=== PATIENT | female | born 1965 | race Asian ===

== ENCOUNTER 2018-04-13 17:04 | Inpatient (IN) | payer OTHER ==
[2018-04-13 19:36] VITALS: BMI 28.1
--- NOTE | 2018-04-13 21:29 | HP ---
CIWA Score - CIWA Score Nausea/Vomitin-Mild Nausea/No Vomiting Muscle Tremors: 4-Moderate,w/Arms Extend Anxiety: 4-Mod. Anxious/Guarded Agitation: 4-Moderately Restless Paroxysmal Sweats: 3 Orientation: 1-Uncertain about Date Tacttile Disturbances: 0-None Auditory Disturbances: 2-Mild Harshness/Frighten Visual Disturbances: 1-Very Mild Sensitivity Headache: 2-Mild CIWA-Ar Total Score: 22 Admission ROS S - HPI Chief Complaint: `C/O WITHDRAWAL SX'S FROM LACK OF ALCOHOL Allergies/Adverse Reactions: Allergies Allergy/AdvReac Type Severity Reaction Status Date / Time Penicillins Allergy Mild Nausea Verified 04/13/18 18:48 History of Present Illness: 53 Y.O FEMALE WITH ALCOHOL DEPENDENCE HERE FOR DETOX. THIS IS CLIENT FIRST INPATIENT TXMENT. SHE WAS REFERRED BY [facility] DUE TO A DWI.SHE IS KNOWN TO OTHER OUTPATIENT DETOX TXMNET. SHE CURRENTLY ATTENDS [facility]. C/O WITHDRAWAL SX'S, CIWA 22. REPORTS LONGEST CLEAN TIME 1 YEAR. SHE REPORTS A HX/O ALCOHOL WITHDRAWAL SEIZURE. LAST EPISODE 2 WEEK AGO. SHE REPORTS BEING HOSPITALIZED X 2 DAYS AT [facility]. SHE ALSO HAS HX/O BLACK OUT, DT'S AND AVH WHEN WITHDRAWAING "COLD TURKEY". PMHX- LYMPH EDEMA, ECZEMA, SICKLE, CELL ANEMIA TRAIT PSYCH- DEPRESSION, ANXIETY Exam Limitations: No Limitations - Ebola screening Have you traveled outside of the country in the last 21 days: No Have you had contact with anyone from an Ebola affected area: No Have you been sick,other than usual withdrawal symptoms: No Do you have a fever: No - Review of Systems Constitutional: Chills, Loss of Appetite, Night Sweats, Changes in sleep EENT: reports: No Symptoms Reported Respiratory: reports: No Symptoms reported Cardiac: reports: No Symptoms Reported GI: reports: Nausea, Poor Appetite : reports: No Symptoms Reported Musculoskeletal: reports: Back Pain (CHRONIC R/T OA) Integumentary: reports: No Symptoms Reported, Dryness (REPROTED ECZEMA) Neuro: reports: Seizure, Tremors (R/T WITHDRAWAL) Endocrine: reports: No Symptoms Reported Hematology: reports: No Symptoms Reported Psychiatric: reports: Anxious, Depressed Other Systems: Reviewed and Negative Patient History - Patient Medical History Hx Anemia: Yes Hx Asthma: No Hx Chronic Obstructive Pulmonary Disease (COPD): No Hx Cancer: No Hx Cardiac Disorders: No Hx Congestive Heart Failure: No Hx Hypertension: No Hx Hypercholesterolemia: No Hx Pacemaker: No HX Cerebrovascular Accident: No Hx Seizures: Yes (alcohol related seizure 04/04/18) Hx Dementia: No Hx Diabetes: No Hx Gastrointestinal Disorders: Yes (obesity 2007 bypass surgery for) Hx Liver Disease: Yes (ELEVATED LFT'S) Hx Genitourinary Disorders: No Hx Sexually Transmitted Disorders: No Hx Renal Disease (ESRD): No Hx Thyroid Disease: No Hx Human Immunodeficiency Virus (HIV): No Hx Hepatitis C: No Hx Depression: Yes (2007) Hx Suicide Attempt: No Hx Bipolar Disorder: No Hx Schizophrenia: No Other Medical History: OSTEOARTHRITIS, ANXIETY, LYMPH EDMEA, - Patient Surgical History Past Surgical History: Yes Hx Abdominal Surgery: Yes (gastric bypass 2007) Other Surgical History: correction for Lymphedema on legs Lymph nodes removed 21 yrs/old 1985 Anesthesia Reaction: No - PPD History Previous Implant?: Yes Documented Results: Negative w/o proof Implanted On Prior R Admission?: No PPD to be Administered?: Yes - Reproductive History Patient is a Female of Child Bearing Age (11 -55 yrs old): Yes Last Menstrual Period: 02/10/18 LMP comment: SPOTTING HAS NOT HAD A PERIOD OVER A YEAR PRIOR TO SPOTTING [place] [facility] [place] - Smoking Cessation Smoking history: Never smoked Have you smoked in the past 12 months: No Cigars Per Day: 0 Hx Chewing Tobacco Use: No Initiated information on smoking cessation: No - Substance & Tx. History Hx Alcohol Use: Yes Hx Substance Use: Yes Substance Use Type: Alcohol Hx Substance Use Treatment: No - Substances Abused Alcohol Route: Oral Frequency: 3-6 times per week Amount used: 1 LITER Age of first use: 14 Date of Last Use: 04/10/18 Family Disease History - Family Disease History Family Disease History: Other: Grandparent (MATERNAL-ALCOHOLIC), Father ( ALCOHOLIC AND DRUG ADDICTION), Mother (DEPRESSION/ SUICIDAL), Son (DEPRESSION) Admission Physical Exam BHS - Vital Signs Vital Signs: Vital Signs - 24 hr 04/13/18 18:41 Temperature 98.9 F Pulse Rate 72 Respiratory 18 Rate Blood Pressure 104/65 - Physical General Appearance: Yes: Appropriately Dressed, Mild Distress, Tremorous, Anxious HEENTM: Yes: EOMI, Normocephalic, Normal Voice, LOU[place], Pharynx Normal Respiratory: Yes: Chest Non-Tender, Lungs Clear, Normal Breath Sounds, No Respiratory Distress, No Accessory Muscle Use Neck: Yes: No masses,lesions,Nodules, Supple, Trachea in good position Breast: Yes: Breast Exam Deferred Cardiology: Yes: Regular Rhythm, Regular Rate, S1, S2 Abdominal: Yes: Normal Bowel Sounds, Non Tender, Soft, Surgical Scar Genitourinary: Yes: Other (NO C/O) Back: Yes: Normal Inspection Musculoskeletal: Yes: full range of Motion, Gait Steady Extremities: Yes: Normal Capillary Refill, Normal Range of Motion, Non-Tender, Tremors, Other (BLE NON PITTING EDEMA. COMPRESSION STOCKINGS NOTED) Neurological: Yes: Fully Oriented, Alert, Motor Strength 5/5, Depressed Affect Integumentary: Yes: Dry, Warm Lymphatic: Yes: Within Normal Limits - Diagnostic (1) Alcohol dependence with uncomplicated withdrawal Current Visit: Yes Status: Acute (2) Lymph edema Current Visit: Yes Status: Acute (3) History of anemia Current Visit: Yes Status: Chronic (4) Sickle-cell trait Current Visit: Yes Status: Chronic (5) Eczema Current Visit: Yes Status: Chronic Qualifiers: Eczema type: unspecified Qualified Code(s): L30.9 - Dermatitis, unspecified (6) Alcohol withdrawal seizure Current Visit: Yes Status: Resolved Qualifiers: Complication of substance-induced condition: uncomplicated Qualified Code(s ): F10.230 - Alcohol dependence with withdrawal, uncomplicated Cleared for Admission [facility] - Detox or Rehab [facility] Level of Care: Medically Managed Detox Regimen/Protocol: Librium Claeared for Rehab Admission: No [facility] Breath Alcohol Content Breath Alcohol Content: 0 Urine Pregancy Test - Result Urine Test Results: Negative- NO Line Present Urine Drug Screen - Results Drug Screen Negative: Yes
[2018-04-13] MEDS ORDERED: MAGNESIUM HYDROX 2400MG/30ML ORAL SUSPENSION 30 ML CUP PO PRN (21:41)
[2018-04-13] MEDS ORDERED: guaiFENesin/D-METHORPHAN HB 10 ML UNIT-DOSE CUPS PO PRN (21:41)
[2018-04-13] MEDS ORDERED: MAG HYDROX/AL HYDROX/SIMETH 30 ML UNIT-DOSE CUP PO PRN (21:41)
[2018-04-13] MEDS ORDERED: chlordiazePOXIDE HCL 25 MG CAPSULE PO PRN (21:41)
[2018-04-13] MEDS ORDERED: MAGNESIUM CITRATE 300 ML BOTTLE PO PRN (21:41)
[2018-04-13] MEDS ORDERED: P-EPHED 60MG/TRIPROLIDI 2.5MG TABLET PO PRN (21:41)
[2018-04-13] MEDS ORDERED: ACETAMINOPHEN 325 MG TABLET (FP) PO PRN (21:41)
[2018-04-13] MEDS ORDERED: NICOTINE POLACRILEX 2 MG GUM BC PRN (21:41)
[2018-04-13] MEDS ORDERED: IBUPROFEN 400 MG TABLET (FP) PO PRN (21:41)
[2018-04-13] MEDS ORDERED: LOPERAMIDE HCL 2 MG CAPSULE PO PRN (21:41)
[2018-04-13] MEDS ORDERED: hydrOXYzine PAMOATE 50 MG CAPSULE (FP) PO PRN (21:41)
[2018-04-13] MEDS ORDERED: MENTHOL/PHENOL 1 EACH UD MM PRN (21:41)
[2018-04-13] MEDS ORDERED: MELATONIN 5 MG TABLETS PO PRN (22:00)
[2018-04-13] MEDS: THIAMINE HCL 100 MG TABLET (FP) PO SCH (22:44)
[2018-04-13] MEDS: chlordiazePOXIDE HCL 25 MG CAPSULE PO SCH (22:44)
[2018-04-14] MEDS: chlordiazePOXIDE HCL 25 MG CAPSULE PO SCH ×4 (05:23→22:16)
[2018-04-14] MEDS: PRENATAL VITAMINS W/ FOLIC ACID TABLET (FP) PO SCH (10:19)
[2018-04-14] MEDS: TRIAMCINOLONE ACET 0.025% CREAM 15 GM TUBE TP SCH (10:22)
[2018-04-14 10:24] LABS: HEMATOCRIT 28.1 % (32.4-45.2); HEMOGLOBIN 9.7 GM/dL (10.7-15.3); MCH 34.4 pg (25.7-33.7); MCHC 34.7 g/dl (32.0-36.0); MEAN CELL VOLUME 99.3 fl (80-96); MEAN PLT VOLUME 8.3 fl (7.5-11.1); PLATELET COUNT 332 K/MM3 (134-434); RBC 2.83 M/mm3 (3.60-5.2); RDW 16.3 % (11.6-15.6); WHITE BLOOD COUNT 3.9 K/mm3 (4.0-10.0)
[2018-04-14 10:44] LABS: ALBUMIN 2.4 g/dl (3.4-5.0); ALK PHOS 90 U/L (45-117); ANION GAP 8 MMOL/L (8-16); BILIRUBIN,TOTAL 0.3 mg/dL (0.2-1); BLOOD UREA NITROGEN 9 mg/dL (7-18); CALCIUM 8.2 mg/dL (8.5-10.1); CHLORIDE 110 mmol/L (98-107); CO2 27 mmol/L (21-32); CREATININE 0.3 mg/dL (0.55-1.3); GLUCOSE,RANDOM 55 mg/dL (74-106); POTASSIUM 3.8 mmol/L (3.5-5.1); SGOT/AST 18 U/L (15-37); SGPT/ALT 24 U/L (13-61); SODIUM 144 mmol/L (136-145); TOT PROT 5.1 g/dl (6.4-8.2)
[2018-04-14] MEDS ORDERED: PNEUMOC 13-VAL CONJ-DIP CRM/PF 0.5 ML DISP.SYRIN IM ONE (12:00)
[2018-04-14] MEDS ORDERED: FLU VACCINE QUAD 60 MCG/0.5 ML (MDV 18-19) IM ONE (12:00)
--- NOTE | 2018-04-14 12:24 | EKG ---
Test Reason : Blood Pressure : / mmHG Vent. Rate : 060 BPM Atrial Rate : 060 BPM P-R Int : 128 ms QRS Dur : 084 ms QT Int : 406 ms P-R-T Axes : 031 052 039 degrees QTc Int : 406 ms NORMAL SINUS RHYTHM NO PREVIOUS ECGS AVAILABLE Confirmed by DARLENE OKEEFE MD ([id number]) on 04/14/2018 12:24:16 PM Referred By: Confirmed By:DARLENE OKEEFE MD
[2018-04-14] MEDS ORDERED: PNEUMOCOCCAL 23 VACCINE 0.5 ML VIAL IM ONE (12:30)
[2018-04-14 12:35] LABS: SICKLE CELL SCREEN POSITIVE (NEGATIVE)
--- NOTE | 2018-04-14 12:39 | PN ---
S CIWA - CIWA Score Nausea/Vomitin-No Nausea/No Vomiting Muscle Tremors: 2 Anxiety: 3 Agitation: 3 Paroxysmal Sweats: 2 Orientation: 0-Oriented Tacttile Disturbances: 0-None Auditory Disturbances: 0-None Visual Disturbances: 0-None Headache: 0-None Present CIWA-Ar Total Score: 10 BHS Progress Note (SOAP) Subjective: PATIENT C/O ANXIETY, RESTLESSNESS, TREMORS AND SWEATING. Objective: 04/14/18 12:34 Vital Signs Temperature 97.8 F 04/14/18 09:43 Pulse Rate 111 H 04/14/18 09:43 Respiratory Rate 18 04/14/18 09:43 Blood Pressure 119/66 04/14/18 09:43 O2 Sat by Pulse Oximetry (%) Laboratory Tests 04/14/18 04/14/18 08:00 08:00 WBC 3.9 L RBC 2.83 L Hgb 9.7 L Hct 28.1 L MCV 99.3 H MCH 34.4 H MCHC 34.7 RDW 16.3 H Plt Count 332 MPV 8.3 Sodium 144 Potassium 3.8 Chloride 110 H Carbon Dioxide 27 Anion Gap 8 BUN 9 Creatinine 0.3 L Creat Clearance w eGFR > 60 Random Glucose 55 L Calcium 8.2 L Total Bilirubin 0.3 AST 18 ALT 24 Alkaline Phosphatase 90 Total Protein 5.1 L Albumin 2.4 L PE: SKIN WARM AND MOIST ALERT AND ORIENTED X 3 AMB AD LÁZARO EXT FULL ROM, + INTERMITTENT TREMORS Assessment: 04/14/18 12:39 WITHDRAWAL SYNDROME Plan: CONTINUE DETOX REGIMEN ENCOURAGE ORAL FLUIDS CONTINUE TO MONITOR CLINICALLY
--- NOTE | 2018-04-14 18:32 | CONSULT ---
[facility] Psychiatric Consult - Data Date of interview: 04/14/18 Admission source: [facility] Identifying data: First admission to [facility] for this 53 y/o AA female seeking detoxification treatment on for alcohol dependence. Patient is , a mother of one, domiciled and currently employed on a part-time schedule. Substance Abuse History: Confirmed by the patient in this session. Details in current [facility] report : Smoking history: Never smoked. Have you smoked in the past 12 months: No. Cigars Per Day: 0. Hx Chewing Tobacco Use: No. Initiated information on smoking cessation: No. - Substance & Tx. History. Hx Alcohol Use: Yes. Hx Substance Use: Yes. Substance Use Type: Alcohol. Hx Substance Use Treatment: No. - Substances Abused. Alcohol. Route: Oral. Frequency: 3-6 times per week. Amount used: 1 LITER. Age of first use: 14. Date of Last Use: 04/10/18 Medical History: History of withdrawal-related withdrawal, eczema, sickle cell trait, lymphedema, antecedent of gastric bypass and osteoarthritis. Psychiatric History: No reported history of psychiatric hospitalizations. Patient is under the care of a private psychiatrist, Dr Bledsoe, for medication management (lexapro 10 mg/day). Diagnosed with MDD. Ms Espinosa denies history of suicide attempts. Physical/Sexual Abuse/Trauma History: Patient denies. Additional Comment: Drug Screen is negative. Mental Status Exam - Mental Status Exam Alert and Oriented to: Time, Place, Person Cognitive Function: Good Patient Appearance: Well Groomed (short stature, overweight) Mood: Apprehensive, Hopeful Affect: Appropriate, Mood Congruent, Normal Range Patient Behavior: Appropriate, Cooperative Speech Pattern: Clear, Appropriate Voice Loudness: Normal Thought Process: Intact, Goal Oriented Thought Disorder: Not Present Hallucinations: Denies Suicidal Ideation: Denies Homicidal Ideation: Denies Insight/Judgement: Fair Sleep: Well Appetite: Good Muscle strength/Tone: Normal Gait/Station: Normal Psychiatric Findings - Problem List ([place] 1, 2,3) (1) Alcohol dependence with uncomplicated withdrawal Current Visit: Yes Status: Acute (2) 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 - Initial Treatment Plan Initial Treatment Plan: Psychoeducation. Sleep hygiene. AA meetings. Psychotherapy (individual, supportive, group). Patient is made aware of the FDA- approved MAT formulations for alcohol relapse prevention. Ms Espinosa indicates her intention to revisit issue of naltrexone or acamprosate with her psychiatrist after discharge from [facility]. Lexapro 10 mg po daily. Ordered. Side effects/benefits discussed with the patient. Consent (verbal) given. Observation.
[2018-04-14 19:39] LABS: URINE APPEARANCE SLCLOUDY; URINE BILIRUBIN NEGATIVE (<2.0 mg/dL); URINE COLOR LTYELLOW; URINE GLUCOSE (UA) NEGATIVE (NEGATIVE); URINE KETONE NEGATIVE (NEGATIVE); URINE LEUK ESTERASE NEGATIVE (NEGATIVE); URINE NITRITE NEGATIVE (NEGATIVE); URINE PROTEIN NEGATIVE (NEGATIVE); URINE UROBILINOGEN NEGATIVE mg/dL (0.2-1.0)
[2018-04-14] MEDS: THIAMINE HCL 100 MG TABLET (FP) PO SCH (22:16)
[2018-04-15] MEDS: chlordiazePOXIDE HCL 25 MG CAPSULE PO SCH ×3 (05:40→18:23)
[2018-04-15] MEDS: ESCITALOPRAM OXALATE 10 MG TABLET (FP) PO SCH (10:24)
[2018-04-15] MEDS: TRIAMCINOLONE ACET 0.025% CREAM 15 GM TUBE TP SCH (10:24)
[2018-04-15] MEDS: PRENATAL VITAMINS W/ FOLIC ACID TABLET (FP) PO SCH (10:25)
--- NOTE | 2018-04-15 11:56 | PN ---
S CIWA - CIWA Score Nausea/Vomitin-No Nausea/No Vomiting Muscle Tremors: 3 Anxiety: 3 Agitation: 2 Paroxysmal Sweats: 1-Minimal Palms Moist Orientation: 0-Oriented Tacttile Disturbances: 0-None Auditory Disturbances: 0-None Visual Disturbances: 0-None Headache: 0-None Present CIWA-Ar Total Score: 9 BHS Progress Note (SOAP) Subjective: seen by psychiatrist on lexapro worry about hair loss x 5 years report had seizure "not long ago" treated at [facility] no discharge treatment not on siezure medication feeling better todayb less sweat no gi idstress Objective: 04/15/18 12:00 Vital Signs Temperature 97.9 F 04/15/18 09:35 Pulse Rate 88 04/15/18 09:35 Respiratory Rate 18 04/15/18 09:35 Blood Pressure 120/65 04/15/18 09:35 O2 Sat by Pulse Oximetry (%) Laboratory Last Values WBC 3.9 K/mm3 (4.0-10.0) L 04/14/18 08:00 RBC 2.83 M/mm3 (3.60-5.2) L 04/14/18 08:00 Hgb 9.7 GM/dL (10.7-15.3) L 04/14/18 08:00 Hct 28.1 % (32.4-45.2) L 04/14/18 08:00 MCV 99.3 fl (80-96) H 04/14/18 08:00 MCH 34.4 pg (25.7-33.7) H 04/14/18 08:00 MCHC 34.7 g/dl (32.0-36.0) 04/14/18 08:00 RDW 16.3 % (11.6-15.6) H 04/14/18 08:00 Plt Count 332 K/MM3 (134-434) 04/14/18 08:00 MPV 8.3 fl (7.5-11.1) 04/14/18 08:00 Sickle Cell Screen Positive (NEGATIVE) 04/14/18 08:00 Sodium 144 mmol/L (136-145) 04/14/18 08:00 Potassium 3.8 mmol/L (3.5-5.1) 04/14/18 08:00 Chloride 110 mmol/L (98-107) H 04/14/18 08:00 Carbon Dioxide 27 mmol/L (21-32) 04/14/18 08:00 Anion Gap 8 MMOL/L (8-16) 04/14/18 08:00 BUN 9 mg/dL (7-18) 04/14/18 08:00 Creatinine 0.3 mg/dL (0.55-1.3) L 04/14/18 08:00 Creat Clearance w eGFR > 60 (>60) 04/14/18 08:00 Random Glucose 55 mg/dL (74-106) L 04/14/18 08:00 Calcium 8.2 mg/dL (8.5-10.1) L 04/14/18 08:00 Total Bilirubin 0.3 mg/dL (0.2-1) 04/14/18 08:00 AST 18 U/L (15-37) 04/14/18 08:00 ALT 24 U/L (13-61) 04/14/18 08:00 Alkaline Phosphatase 90 U/L (45-117) 04/14/18 08:00 Total Protein 5.1 g/dl (6.4-8.2) L 04/14/18 08:00 Albumin 2.4 g/dl (3.4-5.0) L 04/14/18 08:00 Urine Color Ltyellow 04/14/18 14:39 Urine Appearance Slcloudy 04/14/18 14:39 Urine pH 6.0 (5.0-8.0) 04/14/18 14:39 Ur Specific [place] 1.011 (1.010-1.035) 04/14/18 14:39 Urine Protein Negative (NEGATIVE) 04/14/18 14:39 Urine Glucose (UA) Negative (NEGATIVE) 04/14/18 14:39 Urine Ketones Negative (NEGATIVE) 04/14/18 14:39 Urine Blood Negative (NEGATIVE) 04/14/18 14:39 Urine Nitrite Negative (NEGATIVE) 04/14/18 14:39 Urine Bilirubin Negative (<2.0 mg/dL) 04/14/18 14:39 Urine Urobilinogen Negative mg/dL (0.2-1.0) 04/14/18 14:39 Ur Leukocyte Esterase Negative (NEGATIVE) 04/14/18 14:39 RPR Titer Nonreactive (NONREACTIVE) 04/14/18 08:00 lab noted Assessment: 04/15/18 12:01 mild alcohol withdrawal sx Plan: 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
[2018-04-15] MEDS: MINERAL OIL/PETROLAT/WATER TOPICAL CREAM 113 GM JAR TP SCH (16:18)
[2018-04-15] MEDS: chlordiazePOXIDE 5 MG CAPSULE PO SCH (22:23)
[2018-04-15] MEDS: THIAMINE HCL 100 MG TABLET (FP) PO SCH (22:23)
[2018-04-16] MEDS: chlordiazePOXIDE 5 MG CAPSULE PO SCH ×3 (05:35→17:11)
[2018-04-16] MEDS: MINERAL OIL/PETROLAT/WATER TOPICAL CREAM 113 GM JAR TP SCH (10:29)
[2018-04-16] MEDS: PRENATAL VITAMINS W/ FOLIC ACID TABLET (FP) PO SCH (10:29)
[2018-04-16] MEDS: TRIAMCINOLONE ACET 0.025% CREAM 15 GM TUBE TP SCH (10:29)
[2018-04-16] MEDS: ESCITALOPRAM OXALATE 10 MG TABLET (FP) PO SCH (10:30)
--- NOTE | 2018-04-16 15:55 | PN ---
BHS Progress Note (SOAP) Subjective: feeling better no tremor less sweat no gi distress Objective: 04/16/18 15:53 Vital Signs Temperature 99.1 F 04/16/18 13:10 Pulse Rate 88 04/16/18 13:10 Respiratory Rate 18 04/16/18 13:10 Blood Pressure 112/65 04/16/18 13:10 O2 Sat by Pulse Oximetry (%) Laboratory Last Values WBC 3.9 K/mm3 (4.0-10.0) L 04/14/18 08:00 RBC 2.83 M/mm3 (3.60-5.2) L 04/14/18 08:00 Hgb 9.7 GM/dL (10.7-15.3) L 04/14/18 08:00 Hct 28.1 % (32.4-45.2) L 04/14/18 08:00 MCV 99.3 fl (80-96) H 04/14/18 08:00 MCH 34.4 pg (25.7-33.7) H 04/14/18 08:00 MCHC 34.7 g/dl (32.0-36.0) 04/14/18 08:00 RDW 16.3 % (11.6-15.6) H 04/14/18 08:00 Plt Count 332 K/MM3 (134-434) 04/14/18 08:00 MPV 8.3 fl (7.5-11.1) 04/14/18 08:00 Sickle Cell Screen Positive (NEGATIVE) 04/14/18 08:00 Sodium 144 mmol/L (136-145) 04/14/18 08:00 Potassium 3.8 mmol/L (3.5-5.1) 04/14/18 08:00 Chloride 110 mmol/L (98-107) H 04/14/18 08:00 Carbon Dioxide 27 mmol/L (21-32) 04/14/18 08:00 Anion Gap 8 MMOL/L (8-16) 04/14/18 08:00 BUN 9 mg/dL (7-18) 04/14/18 08:00 Creatinine 0.3 mg/dL (0.55-1.3) L 04/14/18 08:00 Creat Clearance w eGFR > 60 (>60) 04/14/18 08:00 Random Glucose 55 mg/dL (74-106) L 04/14/18 08:00 Calcium 8.2 mg/dL (8.5-10.1) L 04/14/18 08:00 Total Bilirubin 0.3 mg/dL (0.2-1) 04/14/18 08:00 AST 18 U/L (15-37) 04/14/18 08:00 ALT 24 U/L (13-61) 04/14/18 08:00 Alkaline Phosphatase 90 U/L (45-117) 04/14/18 08:00 Total Protein 5.1 g/dl (6.4-8.2) L 04/14/18 08:00 Albumin 2.4 g/dl (3.4-5.0) L 04/14/18 08:00 Urine Color Ltyellow 04/14/18 14:39 Urine Appearance Slcloudy 04/14/18 14:39 Urine pH 6.0 (5.0-8.0) 04/14/18 14:39 Ur Specific [place] 1.011 (1.010-1.035) 04/14/18 14:39 Urine Protein Negative (NEGATIVE) 04/14/18 14:39 Urine Glucose (UA) Negative (NEGATIVE) 04/14/18 14:39 Urine Ketones Negative (NEGATIVE) 04/14/18 14:39 Urine Blood Negative (NEGATIVE) 04/14/18 14:39 Urine Nitrite Negative (NEGATIVE) 04/14/18 14:39 Urine Bilirubin Negative (<2.0 mg/dL) 04/14/18 14:39 Urine Urobilinogen Negative mg/dL (0.2-1.0) 04/14/18 14:39 Ur Leukocyte Esterase Negative (NEGATIVE) 04/14/18 14:39 RPR Titer Nonreactive (NONREACTIVE) 04/14/18 08:00 lab noted begin iron supplement 04/16/18 15:53 Assessment: 04/16/18 15:54 mild withdrawal sx Plan: medically supervised detox
[2018-04-16] MEDS: FERROUS SO4 325 MG TABLET (FP) PO SCH (17:11)
[2018-04-16] MEDS: THIAMINE HCL 100 MG TABLET (FP) PO SCH (22:10)
[2018-04-16] MEDS: chlordiazePOXIDE HCL 10 MG CAPSULE PO SCH (22:10)
[2018-04-17] MEDS: chlordiazePOXIDE HCL 10 MG CAPSULE PO SCH (05:54)
--- NOTE | 2018-04-17 08:23 | DS ---
[facility] Detox Discharge Summary Admission Date: 04/13/18 Discharge Date: 04/17/18 - History Present History: Alcohol Dependence - Physical Exam Results Vital Signs: Vital Signs Temperature 97 F L 04/17/18 07:51 Pulse Rate 70 04/17/18 07:51 Respiratory Rate 16 04/17/18 07:51 Blood Pressure 109/65 04/17/18 07:51 O2 Sat by Pulse Oximetry (%) - Treatment Hospital Course: Detox Protocol Followed, Detoxed Safely, Responded well, Discharged Condition Good, Rehab Referral Accepted - Medication Discharge Medications: Ambulatory Orders Escitalopram Oxalate [Lexapro -] 10 mg PO DAILY MDD 10 04/13/18 Folic Acid 1 mg PO DAILY 04/13/18 Multivit-Min/Iron Fum/Folic AC [Tpmbu-Lffyqdy-Pzvrbtse Tablet] 37.5 tab PO DAILY 04/13/18 hydrOXYzine HCL [Atarax -] 25 mg PO BID 04/13/18 - Diagnosis (1) Alcohol dependence with uncomplicated withdrawal Current Visit: Yes Status: Chronic (2) Lymph edema Current Visit: Yes Status: Acute (3) Alcohol-induced mood disorder Current Visit: Yes Status: Chronic (4) Depressive disorder Current Visit: Yes Status: Chronic (5) Eczema Current Visit: Yes Status: Chronic Qualifiers: Eczema type: unspecified Qualified Code(s): L30.9 - Dermatitis, unspecified (6) History of anemia Current Visit: Yes Status: Chronic (7) Sickle-cell trait Current Visit: Yes Status: Chronic (8) Alcohol withdrawal seizure Current Visit: Yes Status: Resolved Qualifiers: Complication of substance-induced condition: uncomplicated Qualified Code(s ): F10.230 - Alcohol dependence with withdrawal, uncomplicated - AMA Did Patient Leave Against Medical Advice: No (referred to [facility])
[2018-04-17] MEDS: FERROUS SO4 325 MG TABLET (FP) PO SCH (08:30)
[2018-04-17 09:49] VITALS: BP 103/62; PULSE 77; TEMP 97.9
[2018-04-17] MEDS: ESCITALOPRAM OXALATE 10 MG TABLET (FP) PO SCH (10:21)
[2018-04-17 16:30] LABS: HGB SOLUBILITY Positive (Negative); Hgb A 58.2 % (96.4-98.8); Hgb C 0 % (0.0); Hgb F 0 % (0.0-2.0)
== END 2018-04-17 10:22 | disposition home or self-care (01) | DRG 775 ==
LOC: YASAS 17:04 → Y6N 20:11
PROC: HZ2ZZZZ Detoxification Services for Substance Abuse Treatment (ICD-10-PCS; principal; 2018-04-13)
DX: F10.230 Alcohol dependence with withdrawal, uncomplicated (principal); F10.24 Alcohol dependence with alcohol-induced mood disorder; F32.9 Major depressive disorder, single episode, unspecified; F41.9 Anxiety disorder, unspecified; G40.509 Epileptic seizures related to external causes, not intractable, without status epilepticus; I89.0 Lymphedema, not elsewhere classified; M19.90 Unspecified osteoarthritis, unspecified site; D57.3 Sickle-cell trait; R94.5 Abnormal results of liver function studies; L30.9 Dermatitis, unspecified; Z86.2 Personal history of diseases of the blood and blood-forming organs and certain disorders involving the immune mechanism; Z88.0 Allergy status to penicillin
CPT/HCPCS: 36415; 80053; 81003; 83021; 85027; 85660; 86593; 90688; 90732; 93005; 93010; G0008; G0009

== ENCOUNTER 2018-07-31 15:00 | Inpatient (IN) | payer OTHER ==
--- NOTE | 2018-07-31 22:10 | HP ---
CIWA Score Nausea/Vomitin-No Nausea/No Vomiting Muscle Tremors: 4-Moderate,w/Arms Extend Anxiety: 4-Mod. Anxious/Guarded Agitation: 4-Moderately Restless Paroxysmal Sweats: 3 Orientation: 1-Uncertain about Date Tacttile Disturbances: 0-None Auditory Disturbances: 0-None Visual Disturbances: 2-Mild Sensitivity Headache: 0-None Present CIWA-Ar Total Score: 18 - Admission Criteria OAS Guidelines: Admission for Medically Managed Detox: Requires at least one of the followin. CIWA greater than 12 2. Seizures within the past 24 hours 3. Delirium tremens within the past 24 hours 4. Hallucinations within the past 24 hours 5. Acute intervention needed for co occurring medical disorder 6. Acute intervention needed for co occurring psychiatric disorder 7. Severe withdrawal that cannot be handled at a lower level of care (continued vomiting, continued diarrhea, abnormal vital signs) requiring intravenous medication and/or fluids 8. Patient presents the following: CIWA greater than 12, Acute intervention needed for co-occurring med or psych disorder Admission Criteria Met: Admission criteria met Admission ROS [facility] Chief Complaint: PRESENTS WITH C/O WORSENING WITHDRAWAL SX'S Allergies/Adverse Reactions: Allergies Allergy/AdvReac Type Severity Reaction Status Date / Time Penicillins Allergy Mild Nausea Verified 04/13/18 18:48 History of Present Illness: 53 y.o.FEMALE WITH HX/O ALCOHOLISM HERE FOR DETOX. CLIENT IS REFERRED BY JSE[facility] AFTER PRESENTING THERE FOR DETOX. SHE IS KNOWN TO THIS SERVICE. LAST HERE 2017. PRESENTS TODAY WITH C/O WORSENING WITHDRAWAL SX'S. CIWA 18. SHE IS ALSO PROBATION MANDATED. STATES DRINKS ABOUT 16-20 OZ OF LIQUOR/ ERYN VS VODKA 4 X WEEK. REPORTS LONGEST CLEAN TIME 2 YEARS. MOST RECENT LEAN TIME 6 MONTHS RELAPSING 1 MONTH AGO. SHE ALSO ATTEND OUTPATIENT PROGRAM AT THE [facility]. PMHX- BLE LYMPH EDEMA, ECZEMA, OA, DEPRESSION, DENIES PAST/PRESENT SI /HI, AVH, . REPORTS 1 EPISODE OF SEIZURE 1 YEAR AGO R/T TO ALCOHOL WITHDRAWAL. 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 Exam Limitations: No Limitations - Ebola screening Have you traveled outside of the country in the last 21 days: No Have you had contact with anyone from an Ebola affected area: No Have you been sick,other than usual withdrawal symptoms: No - Review of Systems Constitutional: Chills, Loss of Appetite, Malaise, Night Sweats, Changes in sleep EENT: reports: No Symptoms Reported Respiratory: reports: No Symptoms reported Cardiac: reports: Edema (LYMPH EDEMA OF BLE) GI: reports: No Symptoms Reported : reports: No Symptoms Reported Musculoskeletal: reports: Joint Pain (CHRONIC) Integumentary: reports: Rash (ECZEMA) Neuro: reports: Seizure (1 YEAR AGO) Endocrine: reports: No Symptoms Reported Hematology: reports: No Symptoms Reported, Other (SICKLE CELL TRAIT) Psychiatric: reports: Orientated x3, Anxious, Depressed Other Systems: Reviewed and Negative Patient History - Patient Medical History Hx Anemia: Yes (SICKLE CELL TRAIT) Hx Asthma: No Hx Chronic Obstructive Pulmonary Disease (COPD): No Hx Cancer: No Hx Cardiac Disorders: No Hx Congestive Heart Failure: No Hx Hypertension: No Hx Hypercholesterolemia: No Hx Pacemaker: No HX Cerebrovascular Accident: No Hx Seizures: Yes (alcohol related seizure 04/04/18) Hx Dementia: No Hx Diabetes: No Hx Gastrointestinal Disorders: Yes (obesity 2008 bypass surgery for) Hx Liver Disease: Yes (ELEVATED LFT'S) Hx Genitourinary Disorders: No Hx Sexually Transmitted Disorders: No Hx Renal Disease (ESRD): No Hx Thyroid Disease: No Hx Human Immunodeficiency Virus (HIV): No Hx Hepatitis C: No Hx Depression: Yes (2007) Hx Suicide Attempt: No Hx Bipolar Disorder: No Hx Schizophrenia: No Other Medical History: OA, LYMPH EDEMA OF BLE, - Patient Surgical History Past Surgical History: Yes Hx Abdominal Surgery: Yes (gastric bypass 2007) Other Surgical History: correction for Lymphedema on legs Lymph nodes removed 21 yrs/old 1985 Anesthesia Reaction: No - PPD History Previous Implant?: Yes Documented Results: Negative w/proof Implanted On Prior R Admission?: Yes Date: 04/15/18 Results: 0MM PPD to be Administered?: No - Reproductive History Patient is a Female of Child Bearing Age (11 -55 yrs old): Yes Last Menstrual Period: 07/17/18 LMP comment: IRREG Patient : No ([facility]) - Smoking Cessation Smoking history: Never smoked Cigars Per Day: 0 Hx Chewing Tobacco Use: No - Substance & Tx. History Hx Alcohol Use: Yes Hx Substance Use: Yes Substance Use Type: Alcohol Hx Substance Use Treatment: Yes ([facility]) - Substances Abused VODKA/ERYN Route: Oral Frequency: 3-6 times per week Amount used: 4-16/20 OZ Age of first use: 17 Date of Last Use: 07/31/18 Family Disease History - Family Disease History Family Disease History: Other: Grandparent (MATERNAL-ALCOHOLIC), Father ( ALCOHOLIC AND DRUG ADDICTION), Mother (DEPRESSION/ SUICIDAL), Son (DEPRESSION) Admission Physical Exam [facility] - Vital Signs Vital Signs: Vital Signs - 24 hr 07/31/18 21:53 Temperature 98.7 F Pulse Rate 93 H Respiratory 18 Rate Blood Pressure 142/82 - Physical General Appearance: Yes: Appropriately Dressed, Mild Distress, Tremorous, Anxious HEENTM: Yes: EOMI, Normocephalic, Normal Voice, LOUIS, Pharynx Normal, Other ( WATERY EYES) Respiratory: Yes: Chest Non-Tender, Lungs Clear, Normal Breath Sounds, No Respiratory Distress, No Accessory Muscle Use Neck: Yes: No masses,lesions,Nodules, Supple, Trachea in good position Breast: Yes: Breast Exam Deferred Cardiology: Yes: Regular Rhythm, S1, S2, Tachycardia Abdominal: Yes: Non Tender, Soft, Increased Bowel Sounds, Surgical Scar Genitourinary: Yes: Within Normal Limits (NO C/O) Back: Yes: Normal Inspection Musculoskeletal: Yes: full range of Motion, Gait Steady Extremities: Yes: Normal Range of Motion, Non-Tender, Tremors Neurological: Yes: Fully Oriented, Alert, Motor Strength 5/5, Confused (ABOUT DATE) Integumentary: Yes: Dry, Warm, Other (NO PITTING EDEMA OF BLE FROM LYMPH EDEMA) Lymphatic: Yes: Within Normal Limits - Diagnostic (1) Insomnia Current Visit: Yes Status: Chronic (2) Lymph edema Current Visit: Yes Status: Chronic (3) Alcohol dependence with uncomplicated withdrawal Current Visit: Yes Status: Chronic (4) Alcohol-induced mood disorder Current Visit: Yes Status: Chronic (5) Depressive disorder Current Visit: Yes Status: Chronic Comment: As per self-report. (6) Eczema Current Visit: Yes Status: Chronic Qualifiers: Eczema type: unspecified Qualified Code(s): L30.9 - Dermatitis, unspecified (7) Sickle-cell trait Current Visit: Yes Status: Chronic Cleared for Admission [facility] - Detox or Rehab [facility] Level of Care: Medically Managed Detox Regimen/Protocol: Librium Claeared for Rehab Admission: No [facility] Breath Alcohol Content Breath Alcohol Content: 0.012 Urine Pregancy Test - Result Urine Test Results: Negative- NO Line Present Urine Drug Screen - Results Drug Screen Negative: Yes Inpatient Rehab Admission - Rehab Decision to Admit Inpatient rehab admission?: No
[2018-07-31] MEDS ORDERED: LOPERAMIDE HCL 2 MG CAPSULE PO PRN (22:17)
[2018-07-31] MEDS ORDERED: MAGNESIUM CITRATE 300 ML BOTTLE PO PRN (22:17)
[2018-07-31] MEDS ORDERED: MENTHOL/PHENOL 1 EACH UD MM PRN (22:17)
[2018-07-31] MEDS ORDERED: MAGNESIUM HYDROX 2400MG/30ML ORAL SUSPENSION 30 ML CUP PO PRN (22:17)
[2018-07-31] MEDS ORDERED: IBUPROFEN 400 MG TABLET (FP) PO PRN (22:17)
[2018-07-31] MEDS ORDERED: P-EPHED 60MG/TRIPROLIDI 2.5MG TABLET PO PRN (22:17)
[2018-07-31] MEDS ORDERED: hydrOXYzine PAMOATE 50 MG CAPSULE (FP) PO PRN (22:17)
[2018-07-31] MEDS ORDERED: ACETAMINOPHEN 325 MG TABLET (FP) PO PRN (22:17)
[2018-07-31] MEDS ORDERED: guaiFENesin/D-METHORPHAN HB 10 ML UNIT-DOSE CUPS PO PRN (22:17)
[2018-08-01] MEDS ORDERED: chlordiazePOXIDE HCL 25 MG CAPSULE PO PRN (00:15)
[2018-08-01] MEDS: MELATONIN 5 MG TABLETS PO PRN (01:06)
[2018-08-01] MEDS: chlordiazePOXIDE HCL 25 MG CAPSULE PO SCH ×4 (05:52→22:09)
--- NOTE | 2018-08-01 09:58 | PN ---
S CIWA - CIWA Score Nausea/Vomitin-Mild Nausea/No Vomiting Muscle Tremors: 4-Moderate,w/Arms Extend Anxiety: 2 Agitation: 3 Paroxysmal Sweats: 1-Minimal Palms Moist Orientation: 1-Uncertain about Date Tacttile Disturbances: 0-None Auditory Disturbances: 0-None Visual Disturbances: 0-None Headache: 1-Very Mild CIWA-Ar Total Score: 13 [facility] Progress Note (SOAP) Subjective: history of insomnia treated with Vistaril 25 mg lymph edema since ag 15 treated with embolism stocking medium with elevation of both legs chronic eczema treated with triamcinolone tremor sweating anxiety depression treated with lexapro last dose unknown psy consultation Objective: 08/01/18 09:58 Vital Signs Temperature 98.9 F 08/01/18 09:09 Pulse Rate 103 H 08/01/18 09:09 Respiratory Rate 18 08/01/18 09:09 Blood Pressure 118/78 08/01/18 09:09 O2 Sat by Pulse Oximetry (%) lab pending 08/01/18 09:59 hold iron supplement Assessment: 08/01/18 09:59 withdrawl sx eczema lymph edema chronic depression Plan: continue detox
[2018-08-01] MEDS: PRENATAL VITAMINS W/ FOLIC ACID TABLET (FP) PO SCH (10:35)
[2018-08-01] MEDS: TRIAMCINOLONE ACET 0.1% OINT 15 GM TUBE TP SCH ×4 (10:58→22:10)
[2018-08-01 11:09] LABS: HEMOGLOBIN 12.8 GM/dL (10.7-15.3); MCH 31.1 pg (25.7-33.7); MCHC 33.8 g/dl (32.0-36.0); MEAN CELL VOLUME 92.2 fl (80-96); MEAN PLT VOLUME 7.8 fl (7.5-11.1); PLATELET COUNT 230 K/MM3 (134-434); RBC 4.12 M/mm3 (3.60-5.2); RDW 13.8 % (11.6-15.6); WHITE BLOOD COUNT 5.5 K/mm3 (4.0-10.0)
[2018-08-01 11:30] LABS: ALBUMIN 3.4 g/dl (3.4-5.0); ALK PHOS 149 U/L (45-117); ANION GAP 13 MMOL/L (8-16); BILIRUBIN,TOTAL 1.4 mg/dL (0.2-1); BLOOD UREA NITROGEN 11 mg/dL (7-18); CALCIUM 8.7 mg/dL (8.5-10.1); CHLORIDE 100 mmol/L (98-107); CO2 24 mmol/L (21-32); GLUCOSE,RANDOM 174 mg/dL (74-106); POTASSIUM 3.3 mmol/L (3.5-5.1); SGOT/AST 35 U/L (15-37); SGPT/ALT 27 U/L (13-61); SODIUM 137 mmol/L (136-145); TOT PROT 6.8 g/dl (6.4-8.2)
[2018-08-01 11:42] LABS: URINE APPEARANCE CLEAR; URINE BILIRUBIN NEGATIVE (<2.0 mg/dL); URINE COLOR YELLOW; URINE GLUCOSE (UA) NEGATIVE (NEGATIVE); URINE KETONE NEGATIVE (NEGATIVE); URINE LEUK ESTERASE NEGATIVE (NEGATIVE); URINE NITRITE NEGATIVE (NEGATIVE); URINE PROTEIN NEGATIVE (NEGATIVE)
--- NOTE | 2018-08-01 12:57 | CONSULT ---
[facility] Psychiatric Consult - Data Date of interview: 08/01/18 Admission source: [facility] Identifying data: Readmission to [facility] for this 53 y/o female of mixed ancestry (AA + Amharic) who presented to [facility] with request for detoxification ( probation-mandated) for alcohol dependence. Examined at [address] [place] [address]. Patient is , a mother of one, domiciled, currently employed and living independently. Substance Abuse History: Discussed in this session. Patient reports daily consumption of vodka or eryn (one pint). No beers. Started using alcohol at age 17. Smoking Cessation. Smoking history: Never smoked. Cigars Per Day: 0. Hx Chewing Tobacco Use: No. - Substance & Tx. History. Hx Alcohol Use: Yes. Hx Substance Use: Yes. Substance Use Type: Alcohol. Hx Substance Use Treatment : Yes ([facility]). - Substances Abused. VODKA/ERYN. Route: Oral. Frequency: 3-6 times per week. Amount used: 4-16/20 OZ. Age of first use: 17. Date of Last Use: 07/31/18 Medical History: History of withdrawal-related withdrawal, eczema, sickle cell trait, lymphedema (surgery for removal of lymph nodes in the lower extremities in 1985), antecedent of gastric bypass (obesity) and osteoarthritis. Psychiatric History: Patient denies history of psychiatric hospitalizations. She admits to chronic depression ( of father, divorce, legal complications from ETOH abuse, strained romantic relationship) and consistent psychiatric follow-up by a private psychiatrist, Dr Bledsoe, for medication management ( lexapro 10 mg/day). Formerly diagnosed with MDD. Court-mandated for outpatient substance abuse treatment at the [facility] in [place], [place]. Ms Espinosa denies history of suicide attempts. Physical/Sexual Abuse/Trauma History: Stressors : legal issues related to DWI status, precarious employment, difficult relation with current boyfriend and alcohol dependence. Additional Comment: Drug Screen is negative. Mental Status Exam - Mental Status Exam Alert and Oriented to: Time, Place, Person Cognitive Function: Good Patient Appearance: Well Groomed (short, overweight) Mood: Nervous, Anxious Affect: Appropriate, Normal Range Patient Behavior: Fatigued, Appropriate, Cooperative Speech Pattern: Clear Voice Loudness: Normal Thought Process: Intact, Goal Oriented Thought Disorder: Not Present Hallucinations: Denies Suicidal Ideation: Denies Homicidal Ideation: Denies Insight/Judgement: Fair Sleep: Fair Appetite: Good Muscle strength/Tone: Normal Gait/Station: Normal Psychiatric Findings - Problem List ([place] 1, 2,3) (1) Alcohol dependence with uncomplicated withdrawal Current Visit: Yes Status: Acute (2) 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 (4) Non-compliance Current Visit: Yes Status: Chronic - Initial Treatment Plan Initial Treatment Plan: Psychoeducation. Sleep hygiene. Detoxification in progress. Will resume lexapro 10 mg po daily at patient's request. Side effects/ benefits discussed in session. Consent (verbal) granted to MD. Support. Motivational teaching. Psychotherapy. Principles of relapse prevention are revisited with the patient. AA meetings. Observation.
[2018-08-01] MEDS: ARTIFICIAL TEARS (POLYVINYL ALCOHOL) OPTH DROPS OU SCH ×3 (13:38→22:09)
[2018-08-01] MEDS ORDERED: POTASSIUM CHLORIDE TABS 20 MEQ TABLET.ER (FP) PO ONE (15:00)
[2018-08-01] MEDS: POTASSIUM CHLORIDE TABS 20 MEQ TABLET.ER (FP) PO SCH (17:29)
[2018-08-01] MEDS ORDERED: hydrOXYzine PAMOATE 25 MG CAPSULE (FP) PO ONE (22:00)
[2018-08-01] MEDS: THIAMINE HCL 100 MG TABLET (FP) PO SCH (22:09)
[2018-08-02] MEDS: POTASSIUM CHLORIDE TABS 20 MEQ TABLET.ER (FP) PO SCH (06:03)
[2018-08-02] MEDS: chlordiazePOXIDE HCL 25 MG CAPSULE PO SCH ×4 (06:03→22:33)
[2018-08-02] MEDS: TRIAMCINOLONE ACET 0.1% OINT 15 GM TUBE TP SCH ×4 (10:52→23:02)
[2018-08-02] MEDS: PRENATAL VITAMINS W/ FOLIC ACID TABLET (FP) PO SCH (10:52)
[2018-08-02] MEDS: ESCITALOPRAM OXALATE 10 MG TABLET (FP) PO SCH (10:52)
[2018-08-02] MEDS: ARTIFICIAL TEARS (POLYVINYL ALCOHOL) OPTH DROPS OU SCH ×4 (11:15→23:02)
--- NOTE | 2018-08-02 13:32 | PN ---
[facility] CIWA - CIWA Score Nausea/Vomitin-No Nausea/No Vomiting Muscle Tremors: 3 Anxiety: 2 Agitation: 2 Paroxysmal Sweats: 1-Minimal Palms Moist Orientation: 0-Oriented Tacttile Disturbances: 0-None Auditory Disturbances: 0-None Visual Disturbances: 0-None Headache: 1-Very Mild CIWA-Ar Total Score: 9 S Progress Note (SOAP) Subjective: tremor sweating otherwise doing ok social with peers in day room Objective: 08/02/18 13:31 Vital Signs Temperature 97.9 F 08/02/18 09:39 Pulse Rate 94 H 08/02/18 09:39 Respiratory Rate 18 08/02/18 09:39 Blood Pressure 112/61 08/02/18 09:39 O2 Sat by Pulse Oximetry (%) Laboratory Last Values WBC 5.5 K/mm3 (4.0-10.0) 08/01/18 08:00 RBC 4.12 M/mm3 (3.60-5.2) 08/01/18 08:00 Hgb 12.8 GM/dL (10.7-15.3) 08/01/18 08:00 Hct 38.0 % (32.4-45.2) D 08/01/18 08:00 MCV 92.2 fl (80-96) 08/01/18 08:00 MCH 31.1 pg (25.7-33.7) 08/01/18 08:00 MCHC 33.8 g/dl (32.0-36.0) 08/01/18 08:00 RDW 13.8 % (11.6-15.6) D 08/01/18 08:00 Plt Count 230 K/MM3 (134-434) D 08/01/18 08:00 MPV 7.8 fl (7.5-11.1) 08/01/18 08:00 Sodium 137 mmol/L (136-145) 08/01/18 08:00 Potassium 4.7 mmol/L (3.5-5.1) 08/02/18 08:38 Chloride 100 mmol/L (98-107) 08/01/18 08:00 Carbon Dioxide 24 mmol/L (21-32) 08/01/18 08:00 Anion Gap 13 MMOL/L (8-16) 08/01/18 08:00 BUN 11 mg/dL (7-18) 08/01/18 08:00 Creatinine 1.0 mg/dL (0.55-1.3) 08/01/18 08:00 Creat Clearance w eGFR 58.22 (>60) 08/01/18 08:00 Random Glucose 174 mg/dL (74-106) H 08/01/18 08:00 Calcium 8.7 mg/dL (8.5-10.1) 08/01/18 08:00 Total Bilirubin 1.4 mg/dL (0.2-1) H 08/01/18 08:00 AST 35 U/L (15-37) 08/01/18 08:00 ALT 27 U/L (13-61) 08/01/18 08:00 Alkaline Phosphatase 149 U/L (45-117) H 08/01/18 08:00 Total Protein 6.8 g/dl (6.4-8.2) 08/01/18 08:00 Albumin 3.4 g/dl (3.4-5.0) 08/01/18 08:00 Urine Color Yellow 08/01/18 10:20 Urine Appearance Clear 08/01/18 10:20 Urine pH 5.0 (5.0-8.0) 08/01/18 10:20 Ur Specific [place] 1.014 (1.010-1.035) 08/01/18 10:20 Urine Protein Negative (NEGATIVE) 08/01/18 10:20 Urine Glucose (UA) Negative (NEGATIVE) 08/01/18 10:20 Urine Ketones Negative (NEGATIVE) 08/01/18 10:20 Urine Blood Negative (NEGATIVE) 08/01/18 10:20 Urine Nitrite Negative (NEGATIVE) 08/01/18 10:20 Urine Bilirubin Negative (<2.0 mg/dL) 08/01/18 10:20 Urine Urobilinogen 2.0 mg/dL (0.2-1.0) H 08/01/18 10:20 Ur Leukocyte Esterase Negative (NEGATIVE) 08/01/18 10:20 RPR Titer Nonreactive (NONREACTIVE) 08/01/18 08:00 HIV 1&2 Antibody Screen Negative 08/01/18 08:00 HIV P24 Antigen Negative 08/01/18 08:00 lab noted disoontinue K+ supplement Assessment: 08/02/18 13:32 withdrawal sx Plan: continue detox
[2018-08-02] MEDS: THIAMINE HCL 100 MG TABLET (FP) PO SCH (22:33)
[2018-08-02] MEDS: MAG HYDROX/AL HYDROX/SIMETH 30 ML UNIT-DOSE CUP PO PRN (22:34)
[2018-08-03] MEDS: chlordiazePOXIDE 5 MG CAPSULE PO SCH ×4 (05:53→22:22)
[2018-08-03] MEDS: ESCITALOPRAM OXALATE 10 MG TABLET (FP) PO SCH (10:54)
[2018-08-03] MEDS: PRENATAL VITAMINS W/ FOLIC ACID TABLET (FP) PO SCH (10:54)
[2018-08-03] MEDS: ARTIFICIAL TEARS (POLYVINYL ALCOHOL) OPTH DROPS OU SCH ×4 (10:54→22:21)
[2018-08-03] MEDS: TRIAMCINOLONE ACET 0.1% OINT 15 GM TUBE TP SCH ×4 (10:56→22:21)
[2018-08-03] MEDS: MAG HYDROX/AL HYDROX/SIMETH 30 ML UNIT-DOSE CUP PO PRN (11:30)
[2018-08-03] MEDS ORDERED: valACYclovir HCL 500 MG TABLET (FP) PO ONE ×2 (14:00→22:00)
[2018-08-03] MEDS ORDERED: valACYclovir HCL 1000 MG TABLET PO ONE (14:00)
--- NOTE | 2018-08-03 18:39 | PN ---
[facility] Progress Note (SOAP) Subjective: Sweating, Diarrhea. Patient Reports History of Herpes Lesions in mouth on cheeks and that she has been experiencing an outbreak on bilateral cheeks for last couple of days. Objective: PATIENT A & O X 3, OBSERVED AMBULATING ON UNIT. IN NO ACUTE DISTRESS. SMALL PAPULAR ERYTHEMAOTUS LESION (1) NOTED ON INSIDE OF BILATERAL CHEEKS. PATIENT REPORTS LESIONS TO BE PAINFUL. PATIENT REPROTS HISTORY OF VALTREEX PRESCRIPTION FOR SIMILAR OCCURRENCE IN PAST ; HOWEVER, ACCORDING TO PHARMAC[facility] [place] NO RECENT PRESCRIPTION FOR VALTREX HAS BEEN GIVEN. 08/03/18 18:35 Vital Signs Temperature 98.4 F 08/03/18 17:48 Pulse Rate 85 08/03/18 17:48 Respiratory Rate 16 08/03/18 17:48 Blood Pressure 118/77 08/03/18 17:48 O2 Sat by Pulse Oximetry (%) Laboratory Tests 08/01/18 08/01/18 08/01/18 08:00 08:00 08:00 WBC 5.5 RBC 4.12 Hgb 12.8 Hct 38.0 D MCV 92.2 MCH 31.1 MCHC 33.8 RDW 13.8 D Plt Count 230 D MPV 7.8 Sodium 137 Potassium 3.3 L Chloride 100 Carbon Dioxide 24 Anion Gap 13 BUN 11 Creatinine 1.0 Creat Clearance w eGFR 58.22 Random Glucose 174 H Calcium 8.7 Total Bilirubin 1.4 H AST 35 ALT 27 Alkaline Phosphatase 149 H Total Protein 6.8 Albumin 3.4 Urine Color Urine Appearance Urine pH Ur Specific [place] Urine Protein Urine Glucose (UA) Urine Ketones Urine Blood Urine Nitrite Urine Bilirubin Urine Urobilinogen Ur Leukocyte Esterase RPR Titer Nonreactive HIV 1&2 Antibody Screen HIV P24 Antigen 08/01/18 08/01/18 08/02/18 08:00 10:20 08:38 WBC RBC Hgb Hct MCV MCH MCHC RDW Plt Count MPV Sodium Potassium 4.7 Chloride Carbon Dioxide Anion Gap BUN Creatinine Creat Clearance w eGFR Random Glucose Calcium Total Bilirubin AST ALT Alkaline Phosphatase Total Protein Albumin Urine Color Yellow Urine Appearance Clear Urine pH 5.0 Ur Specific [place] 1.014 Urine Protein Negative Urine Glucose (UA) Negative Urine Ketones Negative Urine Blood Negative Urine Nitrite Negative Urine Bilirubin Negative Urine Urobilinogen 2.0 H Ur Leukocyte Esterase Negative RPR Titer HIV 1&2 Antibody Screen Negative HIV P24 Antigen Negative LABS NOTED. Assessment: 08/03/18 18:39 WITHDRAWAL SYMPTOMS. Plan: CONTINUE DETOX. INCREASE DAILY PO FLUID INTAKE. PRN IMMODIUM FOR DIARRHEA. THREE DOSES OF VALTREX 1000 MG PO ORDERED BETWEEN TODAY AND TOMORROW (PATIENT SCHEDULED FOR D/C TOMORROW AM). PATIENT TO BE EVALUATED BY MEDICAL PROVIDER ON DETOX UNIT TOMORROW AM TO DETERMINE IF SUBSEQUENT DISCHARGE DOSES ARE REQUIRED. PATIENT ADVISED TO FOLLOW-UP WITH UNION CONTRACT REPRESENTATIVE DR. UNGER ([facility] [place]) AFTER DISCHARGE FROM DETOX UNIT FOR FURTHER ASSESSMENT OF ORAL LESIONS. PATIENT VERBALIZED UNDERSTANDING OF ALL RECOMMENDATIONS. VISCOUS LIDOCAINE ORDERED FOR ORAL PAIN DUE TO LESIONS.
[2018-08-03] MEDS: THIAMINE HCL 100 MG TABLET (FP) PO SCH (22:21)
[2018-08-03] MEDS: MELATONIN 5 MG TABLETS PO PRN (22:22)
[2018-08-04] MEDS: chlordiazePOXIDE HCL 10 MG CAPSULE PO SCH ×2 (05:40→10:33)
[2018-08-04] MEDS ORDERED: valACYclovir HCL 500 MG TABLET (FP) PO ONE (08:00)
[2018-08-04 09:12] VITALS: BP 100/64; PULSE 78; TEMP 96.4
[2018-08-04] MEDS: PRENATAL VITAMINS W/ FOLIC ACID TABLET (FP) PO SCH (10:31)
[2018-08-04] MEDS: TRIAMCINOLONE ACET 0.1% OINT 15 GM TUBE TP SCH ×2 (10:32→14:00)
[2018-08-04] MEDS: ARTIFICIAL TEARS (POLYVINYL ALCOHOL) OPTH DROPS OU SCH ×2 (10:32→14:00)
[2018-08-04] MEDS: ESCITALOPRAM OXALATE 10 MG TABLET (FP) PO SCH (10:32)
--- NOTE | 2018-08-04 16:24 | PN ---
[facility] Progress Note (SOAP) Subjective: denies any complaint Objective: 08/04/18 16:23 A & O x 3 Ambulating steadily on unit Vital Signs Temperature 96.4 F L 08/04/18 09:11 Pulse Rate 78 08/04/18 09:11 Respiratory Rate 18 08/04/18 09:11 Blood Pressure 100/64 08/04/18 09:11 O2 Sat by Pulse Oximetry (%) Assessment: 08/04/18 16:24 withdrawal sx Plan: for d/c
--- NOTE | 2018-08-04 16:26 | DS ---
[facility] Detox Discharge Summary Admission Date: 07/31/18 Discharge Date: 08/04/18 - History Additional Comments: Pt discharge s/p completion of detox Will do aftercare by attending rehab at [facility] - Physical Exam Results Vital Signs: Vital Signs Temperature 96.4 F L 08/04/18 09:11 Pulse Rate 78 08/04/18 09:11 Respiratory Rate 18 08/04/18 09:11 Blood Pressure 100/64 08/04/18 09:11 O2 Sat by Pulse Oximetry (%) - Treatment Hospital Course: Detox Protocol Followed, Detoxed Safely, Responded well, Discharged Condition Good, Rehab Referral Accepted Patient has Accepted a Rehab Referral to: [facility] Rehab - Medication Discharge Medications: Ambulatory Orders Escitalopram Oxalate [Lexapro -] 10 mg PO DAILY MDD 10 04/13/18 Multivit-Min/Iron Fum/Folic AC [Cqoqa-Oyceitf-Gghqpldu Tablet] 37.5 tab PO DAILY 04/13/18 Escitalopram Oxalate [Lexapro -] 10 mg PO DAILY #30 tablet 04/17/18 Folic Acid 1 mg PO DAILY #30 tablet 04/17/18 hydrOXYzine HCL [Atarax -] 25 mg PO PRN 08/01/18 Escitalopram Oxalate [Lexapro -] 10 mg PO DAILY #30 tablet 08/04/18 - AMA Did Patient Leave Against Medical Advice: No
== END 2018-08-04 15:24 | disposition home or self-care (01) | DRG 775 ==
LOC: YASAS 15:00 → Y3N 23:15
PROVIDERS: ADMIT Surgery; ATTEND Surgery
PROC: HZ2ZZZZ Detoxification Services for Substance Abuse Treatment (ICD-10-PCS; principal; 2018-07-31)
DX: F10.230 Alcohol dependence with withdrawal, uncomplicated (principal); F10.24 Alcohol dependence with alcohol-induced mood disorder; F32.9 Major depressive disorder, single episode, unspecified; I89.0 Lymphedema, not elsewhere classified; L30.9 Dermatitis, unspecified; D57.3 Sickle-cell trait; M12.9 Arthropathy, unspecified; Z86.69 Personal history of other diseases of the nervous system and sense organs; Z86.2 Personal history of diseases of the blood and blood-forming organs and certain disorders involving the immune mechanism; Z88.0 Allergy status to penicillin
CPT/HCPCS: 36415; 80053; 81003; 84132; 85027; 86593; 87389

== ENCOUNTER 2018-08-14 20:04 | Inpatient (IN) | payer OTHER ==
[2018-08-14 21:24] VITALS: BMI 27.4
--- NOTE | 2018-08-15 01:22 | HP ---
CIWA Score Nausea/Vomitin-No Nausea/No Vomiting Muscle Tremors: None Anxiety: 4-Mod. Anxious/Guarded Agitation: 4-Moderately Restless Paroxysmal Sweats: 3 Orientation: 1-Uncertain about Date Tacttile Disturbances: 0-None Auditory Disturbances: 0-None Visual Disturbances: 0-None Headache: 0-None Present CIWA-Ar Total Score: 12 - Admission Criteria OAS Guidelines: Admission for Medically Managed Detox: Requires at least one of the followin. CIWA greater than 12 2. Seizures within the past 24 hours 3. Delirium tremens within the past 24 hours 4. Hallucinations within the past 24 hours 5. Acute intervention needed for co occurring medical disorder 6. Acute intervention needed for co occurring psychiatric disorder 7. Severe withdrawal that cannot be handled at a lower level of care (continued vomiting, continued diarrhea, abnormal vital signs) requiring intravenous medication and/or fluids 8. Patient presents the following: CIWA greater than 12 Admission Criteria Met: Admission criteria met Admission ROS [facility] Chief Complaint: C/O WITHDRAWAL SX'S Allergies/Adverse Reactions: Allergies Allergy/AdvReac Type Severity Reaction Status Date / Time Penicillins Allergy Mild Nausea Verified 08/01/18 00:55 History of Present Illness: 53 y.o.FEMALE WITH HX/O ALCOHOLISM HERE FOR DETOX. CLIENT IS REFERRED BY HER [facility] . SHE IS KNOWN TO THIS SERVICE. LAST HERE 10 DAYS AGO. PRESENTS TODAY WITH C/O WORSENING WITHDRAWAL SX'S. CIWA 12. REPORTS IMMEDIATELY RELAPSING UPON DC STATES DRINKS ABOUT 16-20 OZ OF LIQUOR/ ERYN VS VODKA 4 X WEEK. REPORTS LONGEST CLEAN TIME 2 YEARS. MOST RECENT LEAN TIME 6 MONTHS RELAPSING 1 MONTH AGO. 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 PMHX- BLE LYMPH EDEMA, ECZEMA, OA, DEPRESSION, DENIES PAST/ PRESENT SI/HI, AVH, . REPORTS 1 EPISODE OF SEIZURE 1 YEAR AGO R/T TO ALCOHOL WITHDRAWAL. CURRENTLY LIVES WITH SON, UNEMPLOYED, [employer] Exam Limitations: No Limitations - Ebola screening Have you traveled outside of the country in the last 21 days: No (N) Have you had contact with anyone from an Ebola affected area: No Have you been sick,other than usual withdrawal symptoms: No Do you have a fever: No - Review of Systems Constitutional: Changes in sleep EENT: reports: No Symptoms Reported Respiratory: reports: No Symptoms reported Cardiac: reports: Edema (BLE LYMPH EDEMA) GI: reports: Poor Fluid Intake : reports: No Symptoms Reported Musculoskeletal: reports: Joint Pain (CHRONIC) Integumentary: reports: Rash (ECZEMA) Neuro: reports: Seizure (WITHDRAWAL SEIZURE LAST 1 YEAR AGO) Endocrine: reports: No Symptoms Reported Hematology: reports: Other (SICKLE CELL ANEMIA TRAIT) Psychiatric: reports: Orientated x3, Anxious, Depressed Other Systems: Reviewed and Negative Patient History - Patient Medical History Hx Anemia: Yes (SICKLE CELL TRAIT) Hx Asthma: No Hx Chronic Obstructive Pulmonary Disease (COPD): No Hx Cancer: No Hx Cardiac Disorders: No Hx Congestive Heart Failure: No Hx Hypertension: No Hx Hypercholesterolemia: No Hx Pacemaker: No HX Cerebrovascular Accident: No Hx Seizures: No Hx Dementia: No Hx Diabetes: No Hx Gastrointestinal Disorders: Yes (obesity 2008 bypass surgery for) Hx Liver Disease: Yes (ELEVATED LFT'S) Hx Genitourinary Disorders: No Hx Sexually Transmitted Disorders: No Hx Renal Disease (ESRD): No Hx Thyroid Disease: No Hx Human Immunodeficiency Virus (HIV): No Hx Hepatitis C: No Hx Depression: Yes (2007) Hx Suicide Attempt: No Hx Bipolar Disorder: No Hx Schizophrenia: No Other Medical History: BLE LYMPH EDEMA - Patient Surgical History Past Surgical History: Yes Hx Abdominal Surgery: Yes (gastric bypass 2007) Other Surgical History: correction for Lymphedema on legs Lymph nodes removed 21 yrs/old 1985 Anesthesia Reaction: No - PPD History Previous Implant?: Yes Documented Results: Negative w/proof Implanted On Prior [facility] Admission?: Yes Date: 04/15/18 Results: 0MM PPD to be Administered?: No - Reproductive History Patient is a Female of Child Bearing Age (11 -55 yrs old): Yes Last Menstrual Period: 07/17/18 [place] [facility] [place] - Smoking Cessation Smoking history: Current some day smoker Have you smoked in the past 12 months: Yes Aproximately how many cigarettes per day: 2 Cigars Per Day: 0 Hx Chewing Tobacco Use: No Initiated information on smoking cessation: Yes 'Breaking Loose' booklet given: 08/15/18 - Substance & Tx. History Hx Alcohol Use: Yes Hx Substance Use: Yes Substance Use Type: Alcohol Hx Substance Use Treatment: Yes ([facility]) - Substances Abused VODKA/ KAREN Route: Oral Frequency: 3-6 times per week Amount used: 1 BOTTLE/ 1BOTTLE Age of first use: 14 Date of Last Use: 08/14/18 Family Disease History - Family Disease History Family Disease History: Other: Grandparent (MATERNAL-ALCOHOLIC), Father ( ALCOHOLIC AND DRUG ADDICTION), Mother (DEPRESSION/ SUICIDAL), Son (DEPRESSION) Admission Physical Exam [facility] - Vital Signs Vital Signs: Vital Signs - 24 hr 08/14/18 21:21 Temperature 97.8 F Pulse Rate 123 H Respiratory 18 Rate Blood Pressure 126/74 - Physical General Appearance: Yes: Appropriately Dressed, Mild Distress, Alcohol on Breath , Irritable, Anxious HEENTM: Yes: EOMI, Normocephalic, Normal Voice, LOU[place], Pharynx Normal Respiratory: Yes: Chest Non-Tender, Lungs Clear, Normal Breath Sounds, No Respiratory Distress, No Accessory Muscle Use Neck: Yes: No masses,lesions,Nodules, Supple, Trachea in good position Breast: Yes: Breast Exam Deferred Cardiology: Yes: Regular Rhythm, Regular Rate, S1, S2 Abdominal: Yes: Normal Bowel Sounds, Non Tender, Soft Genitourinary: Yes: Within Normal Limits Back: Yes: Normal Inspection Musculoskeletal: Yes: full range of Motion, Gait Steady Extremities: Yes: Normal Range of Motion, Non-Tender Neurological: Yes: Alert, Motor Strength 5/5, Depressed Affect Integumentary: Yes: Dry, Warm Lymphatic: Yes: Within Normal Limits - Diagnostic (1) Nicotine abuse Status: Deleted (2) Alcohol dependence with uncomplicated withdrawal Status: Chronic (3) Alcohol-induced mood disorder Status: Deleted (4) Depressive disorder Status: Deleted Comment: As per self-report. (5) Eczema Status: Deleted Qualifiers: Eczema type: unspecified Qualified Code(s): L30.9 - Dermatitis, unspecified (6) Lymph edema Status: Chronic (7) Sickle-cell trait Status: Deleted (8) Alcohol withdrawal seizure Status: Deleted Qualifiers: Complication of substance-induced condition: uncomplicated Qualified Code(s ): F10.230 - Alcohol dependence with withdrawal, uncomplicated Cleared for Admission [facility] - Detox or Rehab [facility] Level of Care: Medically Managed Detox Regimen/Protocol: Librium Claeared for Rehab Admission: No S Breath Alcohol Content Breath Alcohol Content: 0.206 Urine Pregancy Test - Result Urine Test Results: Negative - NO Line Present Urine Drug Screen - Results Drug Screen Negative: No Urine Drug Screen Results: BZO-Benzodiazepines Inpatient Rehab Admission - Rehab Decision to Admit Inpatient rehab admission?: No
[2018-08-15] MEDS ORDERED: chlordiazePOXIDE HCL 25 MG CAPSULE PO PRN (01:27)
[2018-08-15] MEDS ORDERED: MAGNESIUM CITRATE 300 ML BOTTLE PO PRN (01:27)
[2018-08-15] MEDS ORDERED: guaiFENesin/D-METHORPHAN HB 10 ML UNIT-DOSE CUPS PO PRN (01:27)
[2018-08-15] MEDS ORDERED: hydrOXYzine PAMOATE 50 MG CAPSULE (FP) PO PRN (01:27)
[2018-08-15] MEDS ORDERED: LOPERAMIDE HCL 2 MG CAPSULE PO PRN (01:27)
[2018-08-15] MEDS ORDERED: MENTHOL/PHENOL 1 EACH UD MM PRN (01:27)
[2018-08-15] MEDS ORDERED: P-EPHED 60MG/TRIPROLIDI 2.5MG TABLET PO PRN (01:27)
[2018-08-15] MEDS ORDERED: NICOTINE POLACRILEX 2 MG GUM BC PRN (01:27)
[2018-08-15] MEDS ORDERED: MAGNESIUM HYDROX 2400MG/30ML ORAL SUSPENSION 30 ML CUP PO PRN (01:27)
[2018-08-15] MEDS ORDERED: IBUPROFEN 400 MG TABLET (FP) PO PRN (01:27)
[2018-08-15] MEDS ORDERED: chlordiazePOXIDE HCL 25 MG CAPSULE PO ONE (01:27)
[2018-08-15] MEDS ORDERED: ACETAMINOPHEN 325 MG TABLET (FP) PO PRN (01:27)
[2018-08-15] MEDS: MAG HYDROX/AL HYDROX/SIMETH 30 ML UNIT-DOSE CUP PO PRN ×2 (03:25→18:16)
[2018-08-15] MEDS: chlordiazePOXIDE HCL 25 MG CAPSULE PO SCH ×4 (05:37→22:16)
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
[2018-08-15 10:23] LABS: HEMATOCRIT 37.7 % (32.4-45.2); MCH 31.4 pg (25.7-33.7); MCHC 34.4 g/dl (32.0-36.0); MEAN CELL VOLUME 91.2 fl (80-96); MEAN PLT VOLUME 7.8 fl (7.5-11.1); PLATELET COUNT 286 K/MM3 (134-434); RBC 4.14 M/mm3 (3.60-5.2); RDW 14.2 % (11.6-15.6); WHITE BLOOD COUNT 4.2 K/mm3 (4.0-10.0)
[2018-08-15] MEDS: ESCITALOPRAM OXALATE 10 MG TABLET (FP) PO SCH (10:26)
[2018-08-15] MEDS: PRENATAL VITAMINS W/ FOLIC ACID TABLET (FP) PO SCH (10:26)
[2018-08-15] MEDS: NICOTINE 14 MG/24 HOURS TOPICAL PATCH TD SCH (10:27)
[2018-08-15 11:14] LABS: ALBUMIN 3.6 g/dl (3.4-5.0); ALK PHOS 208 U/L (45-117); ANION GAP 14 MMOL/L (8-16); BILIRUBIN,TOTAL 1.4 mg/dL (0.2-1); BLOOD UREA NITROGEN 7 mg/dL (7-18); CALCIUM 8.9 mg/dL (8.5-10.1); CHLORIDE 96 mmol/L (98-107); CO2 28 mmol/L (21-32); CREATININE 0.6 mg/dL (0.55-1.3); GLUCOSE,RANDOM 92 mg/dL (74-106); POTASSIUM 3.4 mmol/L (3.5-5.1); SGOT/AST 168 U/L (15-37); SGPT/ALT 94 U/L (13-61); SODIUM 138 mmol/L (136-145); TOT PROT 7.2 g/dl (6.4-8.2)
--- NOTE | 2018-08-15 13:37 | PN ---
[facility] CIWA - CIWA Score Nausea/Vomitin-No Nausea/No Vomiting Muscle Tremors: 3 Anxiety: 3 Agitation: 3 Paroxysmal Sweats: 3 Orientation: 0-Oriented Tacttile Disturbances: 0-None Auditory Disturbances: 0-None Visual Disturbances: 0-None Headache: 0-None Present CIWA-Ar Total Score: 12 S Progress Note (SOAP) Subjective: teary sweats shakes agitation Objective: 08/15/18 13:36 Vital Signs Temperature 97.7 F 08/15/18 09:31 Pulse Rate 120 H 08/15/18 11:30 Respiratory Rate 16 08/15/18 11:30 Blood Pressure 130/67 08/15/18 09:31 O2 Sat by Pulse Oximetry (%) Laboratory Tests 08/15/18 08/15/18 07:00 07:00 WBC 4.2 RBC 4.14 Hgb 13.0 Hct 37.7 MCV 91.2 MCH 31.4 MCHC 34.4 RDW 14.2 Plt Count 286 D MPV 7.8 Sodium 138 Potassium 3.4 L Chloride 96 L Carbon Dioxide 28 Anion Gap 14 BUN 7 Creatinine 0.6 Creat Clearance w eGFR > 60 Random Glucose 92 Calcium 8.9 Total Bilirubin 1.4 H AST 168 H ALT 94 H Alkaline Phosphatase 208 H Total Protein 7.2 Albumin 3.6 low potassium 3.4 will replenish aaox3 ambulating no acute distress ast/alt elevated will repeat labs Assessment: 08/15/18 13:36 withdrawal sx Plan: continue detox increase fluids kdur x 4 days ordered d/c tylenol f/u repeated labs
[2018-08-15] MEDS: POTASSIUM CHLORIDE TABS 20 MEQ TABLET.ER (FP) PO SCH (14:43)
[2018-08-15 15:27] LABS: URINE APPEARANCE CLEAR; URINE BILIRUBIN NEGATIVE (<2.0 mg/dL); URINE COLOR YELLOW; URINE GLUCOSE (UA) NEGATIVE (NEGATIVE); URINE KETONE NEGATIVE (NEGATIVE); URINE LEUK ESTERASE NEGATIVE (NEGATIVE); URINE NITRITE NEGATIVE (NEGATIVE); URINE PROTEIN NEGATIVE (NEGATIVE)
[2018-08-15] MEDS: MELATONIN 5 MG TABLETS PO PRN (22:16)
[2018-08-15] MEDS: THIAMINE HCL 100 MG TABLET (FP) PO SCH (22:16)
[2018-08-16] MEDS: chlordiazePOXIDE HCL 25 MG CAPSULE PO SCH ×4 (05:43→22:21)
[2018-08-16] MEDS: ESCITALOPRAM OXALATE 10 MG TABLET (FP) PO SCH (10:20)
[2018-08-16] MEDS: NICOTINE 14 MG/24 HOURS TOPICAL PATCH TD SCH (10:20)
[2018-08-16] MEDS: POTASSIUM CHLORIDE TABS 20 MEQ TABLET.ER (FP) PO SCH (10:20)
[2018-08-16] MEDS: PRENATAL VITAMINS W/ FOLIC ACID TABLET (FP) PO SCH (10:20)
--- NOTE | 2018-08-16 11:51 | PN ---
[facility] CIWA - CIWA Score Nausea/Vomitin-No Nausea/No Vomiting Muscle Tremors: 3 Anxiety: 2 Agitation: 3 Paroxysmal Sweats: 3 Orientation: 0-Oriented Tacttile Disturbances: 0-None Auditory Disturbances: 0-None Visual Disturbances: 0-None Headache: 0-None Present CIWA-Ar Total Score: 11 S Progress Note (SOAP) Subjective: sweats interrupted sleep anxiety body aches Objective: 08/16/18 11:50 Vital Signs Temperature 98.2 F 08/16/18 10:00 Pulse Rate 87 08/16/18 10:00 Respiratory Rate 16 08/16/18 10:00 Blood Pressure 129/95 08/16/18 10:00 O2 Sat by Pulse Oximetry (%) Laboratory Tests 08/15/18 08/15/18 08/15/18 07:00 07:00 07:00 WBC 4.2 RBC 4.14 Hgb 13.0 Hct 37.7 MCV 91.2 MCH 31.4 MCHC 34.4 RDW 14.2 Plt Count 286 D MPV 7.8 Sodium 138 Potassium 3.4 L Chloride 96 L Carbon Dioxide 28 Anion Gap 14 BUN 7 Creatinine 0.6 Creat Clearance w eGFR > 60 Random Glucose 92 Calcium 8.9 Total Bilirubin 1.4 H AST 168 H ALT 94 H Alkaline Phosphatase 208 H Total Protein 7.2 Albumin 3.6 Urine Color Urine Appearance Urine pH Ur Specific [place] Urine Protein Urine Glucose (UA) Urine Ketones Urine Blood Urine Nitrite Urine Bilirubin Urine Urobilinogen Ur Leukocyte Esterase RPR Titer Nonreactive 08/15/18 11:30 WBC RBC Hgb Hct MCV MCH MCHC RDW Plt Count MPV Sodium Potassium Chloride Carbon Dioxide Anion Gap BUN Creatinine Creat Clearance w eGFR Random Glucose Calcium Total Bilirubin AST ALT Alkaline Phosphatase Total Protein Albumin Urine Color Yellow Urine Appearance Clear Urine pH 6.0 Ur Specific [place] 1.016 Urine Protein Negative Urine Glucose (UA) Negative Urine Ketones Negative Urine Blood Negative Urine Nitrite Negative Urine Bilirubin Negative Urine Urobilinogen 2.0 H Ur Leukocyte Esterase Negative RPR Titer aaox3 ambulating no acute distress Assessment: 08/16/18 12:19 withdrawal sx Plan: continue detox increase fluids
[2018-08-16] MEDS: THIAMINE HCL 100 MG TABLET (FP) PO SCH (22:21)
[2018-08-16] MEDS: MELATONIN 5 MG TABLETS PO PRN (22:21)
[2018-08-17] MEDS ORDERED: chlordiazePOXIDE 5 MG CAPSULE PO SCH (05:00)
[2018-08-17 06:35] VITALS: BP 106/76; PULSE 74; TEMP 97.5
--- NOTE | 2018-08-17 09:39 | DS ---
[facility] Detox Discharge Summary Admission Date: 08/14/18 Discharge Date: 08/17/18 - History Present History: Alcohol Dependence - Physical Exam Results Vital Signs: Vital Signs Temperature 97.5 F L 08/17/18 06:34 Pulse Rate 74 08/17/18 06:34 Respiratory Rate 17 08/17/18 06:34 Blood Pressure 106/76 08/17/18 06:34 O2 Sat by Pulse Oximetry (%) - Treatment Hospital Course: Detox Protocol Followed, Detoxed Safely, Responded well, Discharged Condition Good, Rehab Referral Accepted - Medication Discharge Medications: Ambulatory Orders Escitalopram Oxalate [Lexapro -] 10 mg PO DAILY MDD 10 04/13/18 Multivit-Min/Iron Fum/Folic AC [Kosab-Utqatch-Bpszihnx Tablet] 37.5 tab PO DAILY 04/13/18 Escitalopram Oxalate [Lexapro -] 10 mg PO DAILY #30 tablet 04/17/18 Folic Acid 1 mg PO DAILY #30 tablet 04/17/18 hydrOXYzine HCL [Atarax -] 25 mg PO PRN 08/01/18 Escitalopram Oxalate [Lexapro -] 10 mg PO DAILY #30 tablet 08/04/18 - Diagnosis (1) Alcohol dependence with uncomplicated withdrawal Status: Chronic (2) Alcohol-induced sleep disorder Status: Acute (3) Insomnia Status: Chronic Qualifiers: Insomnia type: unspecified Qualified Code(s): G47.00 - Insomnia, unspecified (4) Lymph edema Status: Chronic (5) MDD (major depressive disorder) Status: Chronic - AMA Did Patient Leave Against Medical Advice: No (referred to [facility] )
[2018-08-18] MEDS ORDERED: chlordiazePOXIDE HCL 10 MG CAPSULE PO SCH (05:00)
== END 2018-08-17 07:52 | disposition left against medical advice (07) | DRG 770 ==
LOC: YASAS 20:04 → Y3N 23:49 → Y6N 08-15 02:43
PROVIDERS: ADMIT Surgery; ATTEND Surgery
PROC: HZ2ZZZZ Detoxification Services for Substance Abuse Treatment (ICD-10-PCS; principal; 2018-08-14)
DX: F10.230 Alcohol dependence with withdrawal, uncomplicated (principal); F10.24 Alcohol dependence with alcohol-induced mood disorder; F10.282 Alcohol dependence with alcohol-induced sleep disorder; F17.200 Nicotine dependence, unspecified, uncomplicated; F32.9 Major depressive disorder, single episode, unspecified; G47.00 Insomnia, unspecified; I89.0 Lymphedema, not elsewhere classified; L30.9 Dermatitis, unspecified; D57.3 Sickle-cell trait; Z86.69 Personal history of other diseases of the nervous system and sense organs; Z98.84 Bariatric surgery status; Z88.0 Allergy status to penicillin
CPT/HCPCS: 36415; 80053; 81003; 85027; 86593

== ENCOUNTER 2024-12-19 17:37 | Emergency (ER) | payer OTHER ==
[2024-12-19 17:55] VITALS: BP 100/62; PULSE 76; RESP 20; TEMP 98.2; BMI 29.2
[2024-12-19] MEDS ORDERED: ACETAMINOPHEN 500 MG TABLET (FP) ONE (18:17)
[2024-12-19] MEDS: LIDOCAINE 4% PATCH TP ONE (18:21)
[2024-12-19] MEDS: ACETAMINOPHEN 500 MG TABLET (FP) PO ONE (18:22)
[2024-12-19] MEDS: LIDOCAINE PATCH REMOVAL MC SCH (19:45)
== END 2024-12-19 20:33 | disposition home or self-care (01) ==
LOC: JERFT 17:37
DX: M54.2 Cervicalgia (principal); M25.512 Pain in left shoulder; V43.62XA Car passenger injured in collision with other type car in traffic accident, initial encounter; Y92.410 Unspecified street and highway as the place of occurrence of the external cause
CPT/HCPCS: 70450-TC; 72125-TC; 73030-TC-LT-FY; 99284-25